=== PATIENT | male | born 2000 | race African-American/Black ===

== ENCOUNTER 2018-08-17 14:21 | Emergency (ER) | payer MEDICAID ==
[2018-08-17] MEDS ORDERED: Ibuprofen 600 MG Tab PO ONE (14:40)
--- NOTE | 2018-08-17 15:13 | EDM.PDOC ---
ED HPI GENERAL MEDICAL PROBLEM - General Chief Complaint: ENT Problem Stated Complaint: SORE THROAT Time Seen by Provider: 08/17/18 14:27 Source of Information: Reports: Patient History Limitations: Reports: No Limitations - History of Present Illness INITIAL COMMENTS - FREE TEXT/NARRATIVE: History of present illness: []Patient has had a sore throat for 4 days that has progressively worsened. He states he's had chills last 2 days and started having fevers yesterday. He has difficulty eating food because it hurts to swallow. He denies any shortness of breath or difficulty taking any fluids. Review of systems: As per history of present illness and below otherwise all systems reviewed and negative. Past medical history: As per history of present illness and as reviewed below otherwise noncontributory. Surgical history: As per history of present illness and as reviewed below otherwise noncontributory. Social history: No reported history of drug or alcohol abuse. Family history: As per history of present illness and as reviewed below otherwise noncontributory. Physical exam: General: Well developed, well nourished in NAD HEENT: Atraumatic, normocephalic, pupils reactive, negative for conjunctival pallor or scleral icterus, mucous membranes moist, throat erythematous, tonsils are swollen and covered with exudate, neck supple, nontender, trachea midline. No stridor Lungs: Clear to auscultation, breath sounds equal bilaterally, chest nontender. Heart: S1S2, regular, negative for clicks, rubs, or JVD. Abdomen: Soft, nondistended, nontender. Negative for masses or hepatosplenomegaly. Negative for costovertebral tenderness. Pelvis: Stable nontender. Genitourinary: Deferred. Rectal: Deferred. Extremities: Atraumatic, negative for cords or calf pain. Neurovascular unremarkable. Neuro: Awake, alert, oriented. Cranial nerves II through XII unremarkable. Cerebellum unremarkable. Motor and sensory unremarkable throughout. Exam nonfocal. Skin:warm and dry Diagnostics: Rapid strep positive Therapeutics: Ibuprofen in the ED ED Course: Unremarkable Impression: Strep pharyngitis Prescriptions: Amoxicillin Plan: Follow-up with primary care Tylenol Motrin for pain take meds as directed. Definitive disposition and diagnosis as appropriate pending reevaluation and review of above. Throat Pain Score (Numeric/FACES): 10 - Related Data Allergies Allergy/AdvReac Type Severity Reaction Status Date / Time No Known Allergies Allergy Verified 08/17/18 14:30 Home Meds: Home Meds Amoxicillin 500 mg PO TID #21 capsule 08/17/18 [Rx] Past Medical History - Past Health History Medical/Surgical History: Denies Medical/Surgical History - Infectious Disease History Infectious Disease History: Reports: None Social & Family History - Family History Family Medical History: Noncontributory - Tobacco Use Smoking Status *Q: Never Smoker - Caffeine Use Caffeine Use: Reports: None - Recreational Drug Use Recreational Drug Use: No ED ROS ENT - Review of Systems Review Of Systems: ROS reveals no pertinent complaints other than HPI. ED EXAM, ENT - Physical Exam Exam: See Below (See history of present illness) Course - Vital Signs Last Recorded V/S: Last Vital Signs Temp 98.9 F 08/17/18 15:02 Pulse 88 08/17/18 14:30 Resp 16 08/17/18 14:30 BP 134/68 08/17/18 14:30 Pulse Ox 96 08/17/18 14:30 - Orders/Labs/Meds Meds: Medications Discontinued Medications Generic Name Dose Route Start Last Admin Trade Name Jerome PRN Reason Stop Dose Admin Ibuprofen 600 mg 08/17/18 14:40 08/17/18 15:02 Motrin PO 08/17/18 14:41 600 mg ONETIME ONE Administration Departure - Departure Time of Disposition: 15:12 Disposition: Home, Self-Care 01 Condition: Good Clinical Impression: Strep pharyngitis - Discharge Information *PRESCRIPTION DRUG MONITORING PROGRAM REVIEWED*: No *COPY OF PRESCRIPTION DRUG MONITORING REPORT IN PATIENT BRADY: No Prescriptions: Amoxicillin 500 mg PO TID #21 capsule Instructions: Strep Throat, [id number] Referrals: PCP,None [Primary Care Provider] - Forms: ED Department Discharge Additional Instructions: The following information is given to patients seen in the emergency department who are being discharged to home. This information is to outline your options for follow-up care. We provide all patients seen in our emergency department with a follow-up referral. The need for follow-up, as well as the timing and circumstances, are variable depending upon the specifics of your emergency department visit. If you don't have a primary care physician on staff, we will provide you with a referral. We always advise you to contact your personal physician following an emergency department visit to inform them of the circumstance of the visit and for follow-up with them and/or the need for any referrals to a consulting specialist. The emergency department will also refer you to a specialist when appropriate. This referral assures that you have the opportunity for follow-up care with a specialist. All of these measure are taken in an effort to provide you with optimal care, which includes your follow-up. Under all circumstances we always encourage you to contact your private physician who remains a resource for coordinating your care. When calling for follow-up care, please make the office aware that this follow-up is from your recent emergency room visit. If for any reason you are refused follow-up, please contact the [facility] Emergency Department at and asked to speak to the emergency department charge nurse. Take Tylenol, ibuprofen and amoxicillin as directed follow-up with primary care return if symptoms worsen or change. [facility] [address] [place] [id number]
== END 2018-08-17 15:30 | disposition home or self-care (01) ==
LOC: MW.ED 14:21
DX: J02.0 Streptococcal pharyngitis (principal)
CPT/HCPCS: 87880; 99283; A9270; 99282